=== PATIENT | male | born 1995 | race Caucasian/White ===

== ENCOUNTER 2023-04-29 18:10 | Emergency (ER) | payer SELFPAY ==
[2023-04-29 18:21] VITALS: BP 138/90; PULSE 72; RESP 18; TEMP 36.4; O2SAT 99; BMI 25.1
--- NOTE | 2023-04-29 18:27 | ED.CHESTPAIN ---
HPI - Chest Pain General Chief Complaint: Chest Pain Stated Complaint: Chest pain Time Seen by Provider: 04/29/23 18:27 Source: patient Mode of arrival: Ambulatory Limitations: no limitations History of Present Illness HPI narrative: Otherwise healthy 27-year-old gentleman presents with left-sided chest pain. He notes that he had an episode yesterday of central chest pain radiating up to the right shoulder as he was lying down and getting ready for bed. It lasted 10-15 minutes and resolved. Was not associated with dyspnea, diaphoresis or cough. He had another episode today again started around the sternum and this time radiated up to the left shoulder and scapula, lasted 20-25 minutes today and was not associated with activity. He notes that if he twists or turns his torso he can somewhat reproduce the pain. He has not had any recent upper respiratory infections or cough. He is never had similar findings. He is not reporting nausea, abdominal pain or diarrhea. Related Data Allergies Allergy/AdvReac Type Severity Reaction Status Date / Time No Known Drug Allergies Allergy Verified 04/29/23 18:21 Review of Systems Review of Systems Narrative: Pertinent positive and negative findings as per HPI Patient History Social History Smoking Status: Current some day smoker Smoking Status: Current some day smoker tobacco type: cigarettes alcohol intake frequency: a few times a week Substance Use Type: marijuana Exam Initial Vital Signs Initial Vital Signs: Vital Signs Temperature 97.6 F 04/29/23 18:21 Pulse Rate 72 04/29/23 18:21 Respiratory Rate 18 04/29/23 18:21 Blood Pressure 138/90 04/29/23 18:21 Pulse Oximetry 99 04/29/23 18:21 Oxygen Delivery Method Room Air 04/29/23 18:21 General: Healthy appearing, in no acute distress. Able to give a complete and coherent history. Well-nourished well-developed HEENT: Moist mucous membranes, normal sclera with reactive pupils, Neck: No JVD, supple Respiratory: Lungs are clear to auscultation, no wheezing no rales no rhonchi. Full and symmetrical air movement Chest: Slight tenderness with palpation along sternal borders bilaterally Cardiac: Regular rate and rhythm no murmurs no bruits Abdomen: Soft, nontender, good bowel tones, no flank pain Skin: Warm and dry, no rashes Neurologic: Grossly neurologically intact with no obvious asymmetries or abnormalities Extremities: No trauma, well perfused Psych: Cooperative, appropriate insight and affect Course Orders Ordered: ED Orders 04/29/23 18:25 EKG-12 Lead Routine 04/29/23 18:30 XR chest 1V Stat 04/29/23 18:35 Complete Blood Count AUTO DIFF Stat Comprehensive Metabolic Panel Stat D Dimer Stat Troponin I Stat Discontinued Medications Ketorolac Tromethamine (Ketorolac 30 Mg/Ml Vial) 15 mg IV NOW ONE Stop: 04/29/23 18:30 Last Admin: 04/29/23 18:55 Dose: 15 mg Documented By: CHRISTINE Vital Signs Vital signs: Vital Signs - 8 hr 04/29/23 18:21 04/29/23 20:37 04/29/23 22:12 Temperature 97.6 F Pulse Rate 72 65 60 Respiratory Rate 18 18 16 Blood Pressure 138/90 141/77 H 126/70 Pulse Oximetry 99 100 100 Oxygen Delivery Method Room Air Room Air Room Air MDM - Chest Pain Lab Data 04/29/23 18:35 04/29/23 18:35 Labs: Lab Results 04/29/23 04/29/23 04/29/23 Range/Units 18:35 18:35 18:35 WBC 8.3 (4.5-11.0) X10^3/uL RBC 4.97 (4.5-5.9) X10^6/uL Hgb 15.5 (13.5-17.5) g/dL Hct 44.3 (41-53) % MCV 89.0 (80-100) fL MCH 31.1 (26-34) PG MCHC 35.0 (30-36) % RDW 13.6 (11.6-14.8) % Plt Count 220 (150-400) X10^3/uL Neut % (Auto) 63.4 (50-75) % Lymph % (Auto) 24.1 L (25-40) % [place] % (Auto) 8.7 (3-14) % Eos % (Auto) 3.1 (2-4) % Baso % (Auto) 0.7 (0-2) % Neut # (Auto) 5200 (9977-2290) /uL Lymph # (Auto) 2000 (5998-6670) /uL [place] # (Auto) 700 (0-900) /uL Eos # (Auto) 300 (0-450) /uL Baso # (Auto) 100 (0-100) /uL D-Dimer < 215 (<500) ng/ml Sodium 139 (137-145) mmol/L Potassium 3.9 (3.4-5.1) mmol/L Chloride 103 (98-107) mmol/L Carbon Dioxide 26 (22-32) mmol/L BUN 12 (9-20) mg/dL Creatinine 0.92 (0.66-1.25) mg/dL Estimated GFR > 60 (>60) mL/min BUN/Creatinine Ratio 13.0 (6-22) Glucose 101 H (70-100) mg/dL Calcium 10.1 (8.4-10.2) mg/dL Total Bilirubin 0.8 (0.2-1.3) mg/dL AST 33 (17-59) IU/L ALT 41 (<50) IU/L Alkaline Phosphatase 52 (38-126) U/L Troponin I < 0.012 (0.01-0.034) ng/mL Total Protein 8.3 H (6.3-8.2) g/dL Albumin 4.8 (3.5-5.0) g/dL Globulin 3.5 (1.7-4.1) g/dL Albumin/Globulin Ratio 1.4 (1.0-2.8) MDM Narrative Medical decision making narrative: CC: Sternal pain radiating to both shoulders Data collected from: patient, Differential considered: Acute coronary syndrome, pneumothorax, pulmonary embolism, costochondritis, pleurisy Exam documented above, pertinent findings include: Minor reproducible chest wall tenderness with palpation along sternal borders. Remainder of exam is entirely benign Lab Test results independently reviewed as above. Pertinent findings: Chemistries are unremarkable D-dimer is not elevated, do not suspect pulmonary embolism Chemistries are reassuring Independently reviewed EKG shows sinus rhythm at a rate of 70, normal intervals normal axis, slightly peaked T-waves (potassium levels are normal), no acute ischemic changes Imaging studies independently reviewed: Chest x-ray shows no acute findings Treatments: Parenteral Toradol Discussion: Otherwise healthy 27-year-old gentleman with chest pain that appears to be musculoskeletal in nature. There is no evidence for acute coronary syndrome, pneumothorax, pulmonary embolism, pneumonia, thoracic masses or tumors, bacterial or viral infection. Findings reviewed with the patient along with likely diagnosis of musculoskeletal chest pain. Given the fact that he did improve with Toradol if recommended ibuprofen if the pain continues to bother him. At this point there is no indication for hospitalization or additional imaging. Questions are answered and he is safe for discharge home Discharge Plan Departure Patient Disposition: Home Clinical Impression: Musculoskeletal chest pain Instructions: DI for Musculoskeletal Pain Activity Restrictions/Additional Instructions: Thank you for coming in today Your workup was very reassuring. I do not see any evidence of heart attack or heart attack like syndrome, collapsed lung, blood clots in your lungs, infection or alternate explanations for your pain that would require hospitalization or further workup today. The fact that your pain is somewhat positional, yesterday went to the right side, today went to the left side very much argues for musculoskeletal pain rather than anything deeper or internal. Using 400 mg of ibuprofen (2 [id number] pills) and 1 Tylenol every 6 hours can be very helpful in controlling pain. If you find that you are getting worse or develop any new symptoms, please feel free to return to the emergency department for further evaluation. Stand Alone Forms: Patient Portal/API
--- NOTE | 2023-04-29 18:30 | DI.RAD.S_ITS ---
PROCEDURE: XR CHEST 1V INDICATIONS: Chest pain TECHNIQUE: One view of the chest was acquired. COMPARISON: None. FINDINGS: Surgical changes and devices: None. Lungs and pleura: Lungs are clear. No pleural effusions or pneumothorax. Mediastinum: Mediastinal contours appear normal. Heart size is normal. Bones and chest wall: No suspicious bony lesions. Overlying soft tissues appear unremarkable. IMPRESSION: Portable chest within normal limits for age. Dictated by: Najma Newman M.D. on 04/29/2023 at 20:23 Approved by: Najma Newman M.D. on 04/29/2023 at 20:23
[2023-04-29 18:54] LABS: Add Manual Diff / Slide Review NO; Basophils Absolute Auto 100 /uL (0-100); Basophils Percent Auto 0.7 % (0-2); Eosinophils Absolute Auto 300 /uL (0-450); Eosinophils Percent Auto 3.1 % (2-4); Hematocrit 44.3 % (41-53); Hemoglobin 15.5 g/dL (13.5-17.5); Lymphocytes Absolute Auto 2000 /uL (1100-4500); Lymphocytes Percent Auto 24.1 % (25-40); Mean Corpuscular Hemoglobin 31.1 PG (26-34); Monocytes Absolute Auto 700 /uL (0-900); Monocytes Percent Auto 8.7 % (3-14); Neutrophils Absolute Auto 5200 /uL (1500-7000); Neutrophils Percent Auto 63.4 % (50-75); Platelet Count 220 X10^3/uL (150-400); Red Blood Cell Count 4.97 X10^6/uL (4.5-5.9); Red Cell Distribution Width 13.6 % (11.6-14.8); White Blood Cell Count 8.3 X10^3/uL (4.5-11.0)
[2023-04-29 18:55] LABS: D Dimer < 215 ng/ml (<500)
[2023-04-29] MEDS: KETOROLAC 30 MG/ML VIAL 15 MG IV (18:55)
[2023-04-29 18:56] LABS: Alanine Aminotransferase 41 IU/L (<50); Albumin 4.8 g/dL (3.5-5.0); Albumin Globulin Ratio 1.4 (1.0-2.8); Alkaline Phosphatase 52 U/L (38-126); Aspartate Aminotransferase 33 IU/L (17-59); Bilirubin Total 0.8 mg/dL (0.2-1.3); Blood Urea Nitrogen 12 mg/dL (9-20); Calcium 10.1 mg/dL (8.4-10.2); Carbon Dioxide 26 mmol/L (22-32); Chloride 103 mmol/L (98-107); Estimated Glomerular Filt Rate > 60 mL/min (>60); Globulin 3.5 g/dL (1.7-4.1); Glucose 101 mg/dL (70-100); HEMOLYSIS < 15 (0-50); Potassium 3.9 mmol/L (3.4-5.1); Sodium 139 mmol/L (137-145); Total Protein 8.3 g/dL (6.3-8.2)
[2023-04-29 19:07] LABS: Troponin I < 0.012 ng/mL (0.01-0.034)
[2023-04-29 20:37] VITALS: BP 141/77; PULSE 65; RESP 18; O2SAT 100
[2023-04-29 22:12] VITALS: BP 126/70; PULSE 60; RESP 16; O2SAT 100
== END 2023-04-29 22:45 | disposition home or self-care (01) ==
PROVIDERS: Emergency Provider Emergency Medicine
DX: R07.89 Other chest pain (principal)
CPT/HCPCS: 36415; 71045; 80053; 84484; 85025; 85379; 93005; 96374; 99284; J1885